=== PATIENT | male | born 1945 | race Caucasian/White ===

== ENCOUNTER 2021-01-17 09:26 | Outpatient (CLI) | payer BC ==
[2021-01-17] MEDS ORDERED: Magnevist 469MG/ML 20 ML VIAL ONE (10:11)
[2021-01-17 10:20] LABS: Estimated GFR-MDRD - POC Greater than 90
== END 2021-01-17 09:27 | disposition home or self-care (01) ==
LOC: TBSIIMAG 09:26
PROVIDERS: ATTEND Urology
DX: R97.20 Elevated prostate specific antigen [PSA] (principal)
CPT/HCPCS: 72197; 82565; A9579